=== PATIENT | male | born 1990 | race Caucasian/White ===

== ENCOUNTER 2018-07-11 09:35 | Emergency (ER) | payer OTHER ==
--- NOTE | 2018-07-11 09:42 | ERPHSYRPT ---
- History of Present Illness Time Seen by Provider: 07/11/18 09:41 Source: patient Exam Limitations: no limitations Physician History: 27 y/o white male presents with sudden onset of left flank pain at 0745 this am. no injury or fall. no known nephrolithiasis. never had anything like this before. associated n/v. no abd pain and no diarrhea. Timing/Duration: today Activites at Onset: none Quality: sharpness, stabbing Onset Location: left flank Pain Radiation: none Severity of Pain-Max: moderate Severity of Pain-Current: moderate Modifying Factors: Improves With: nothing Associated Symptoms: nausea, vomiting, lower back pain, No abdominal pain, No urinary frequency Prior abdominal problems: none Allergies/Adverse Reactions: No Known Drug Allergies Allergy (Verified 07/11/18 10:04) - Past Medical History Pertinent Past Medical History: Yes Neurological History: No Pertinent History ENT History: No Pertinent History Cardiac History: No Pertinent History Respiratory History: No Pertinent History Endocrine Medical History: No Pertinent History Musculoskeletal History: No Pertinent History GI Medical History: No Pertinent History History: No Pertinent History Psycho-Social History: No Pertinent History Male Reproductive Disorders: No Pertinent History - Past Surgical History Neuro Surgical History: No Pertinent History Cardiac: No Pertinent History Respiratory: No Pertinent History Gastrointestinal: No Pertinent History Genitourinary: No Pertinent History Musculoskeletal: No Pertinent History Male Surgical History: No Pertinent History - Review of Systems Constitutional: No Symptoms Eyes: No Symptoms Ears, Nose, & Throat: No Symptoms Respiratory: No Symptoms Cardiac: No Symptoms Abdominal/Gastrointestinal: Nausea, Vomiting, No Abdominal Pain, No Diarrhea, No Constipation Genitourinary Symptoms: Flank Pain (left), No Dysuria, No Frequency, No Hematuria Musculoskeletal: Back Pain, No Neck Pain, No Fall Skin: No Symptoms Neurological: No Symptoms Psychological: No Symptoms Endocrine: No Symptoms Immunological/Allergic: No Symptoms All Other Systems: Reviewed and Negative - Nursing Vital Signs Nursing Vital Signs: Initial Vital Signs Temperature 98.5 F 07/11/18 11:22 Pulse Rate 92 H 07/11/18 11:22 Blood Pressure 130/79 07/11/18 11:22 O2 Sat by Pulse Oximetry 97 07/11/18 11:22 Pain Scale Pain Intensity 9 - Physical Exam General Appearance: moderate distress, alert, anxiety Eye Exam: PERRL/EOMI Ears, Nose, Throat Exam: normal ENT inspection, moist mucous membranes Neck Exam: normal inspection, non-tender, supple, full range of motion Respiratory Exam: normal breath sounds, lungs clear, airway intact, No chest tenderness, No respiratory distress, No accessory muscle use, No rhonchi, No wheezing, No stridor Cardiovascular Exam: regular rate/rhythm, normal heart sounds, normal peripheral pulses Gastrointestinal/Abdomen Exam: soft, normal bowel sounds, No tenderness, No guarding, No rebound Rectal Exam: not done Back Exam: normal inspection, normal range of motion, CVA tenderness (left), No vertebral tenderness, No muscle spasm Extremity Exam: normal inspection, normal range of motion, pelvis stable Neurologic Exam: alert, oriented x 3, cooperative, 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 Skin Exam: normal color, warm, dry Lymphatic Exam: No adenopathy SpO2 Interpretation: normal O2 Delivery: Room Air Ordered Tests: Active Orders 24 hr Category Date Time Status IV Insertion STAT Care 07/11/18 09:52 Active ABDOMEN AND PELVIS W/0 CONTRAS [CT] Stat Exams 07/11/18 09:53 Completed AMYLASE Stat Lab 07/11/18 10:00 Completed CBC W DIFF Stat Lab 07/11/18 10:00 Completed CMP Stat Lab 07/11/18 10:00 Completed LIPASE Stat Lab 07/11/18 10:00 Completed Lactic Acid Stat Lab 07/11/18 10:06 Results UA W/RFX UR CULTURE Stat Lab 07/11/18 09:52 Uncollected Medication Summary Discontinued Medications Generic Name Dose Route Start Last Admin Trade Name Rubenq PRN Reason Stop Dose Admin Hydromorphone HCl 1 mg 07/11/18 09:52 07/11/18 10:41 Hydromorphone 1 Mg/Ml Ampule IV 07/11/18 09:53 1 mg STAT ONE Administration Hydromorphone HCl Confirm 07/11/18 10:40 Hydromorphone 1 Mg/Ml Ampule Administered 07/11/18 10:41 Dose 1 mg .ROUTE .STK-MED ONE Sodium Chloride Confirm 07/11/18 09:50 Sodium Chloride 0.9% 1000 Ml Administered 07/11/18 09:51 Dose 1,000 mls @ ud .ROUTE .STK-MED ONE Sodium Chloride 1,000 mls @ 999 mls/hr 07/11/18 09:52 07/11/18 11:33 Sodium Chloride 0.9% 1000 Ml IV 07/11/18 10:52 Infused .Q1H1M STA Infusion Ketorolac Tromethamine 30 mg 07/11/18 10:26 07/11/18 10:41 Toradol 30 Mg Injection IV 07/11/18 10:27 30 mg STAT ONE Administration Ketorolac Tromethamine Confirm 07/11/18 10:40 Toradol 30 Mg Injection Administered 07/11/18 10:41 Dose 30 mg .ROUTE .STK-MED ONE Ondansetron HCl Confirm 07/11/18 09:50 Zofran 4 Mg/2 Ml Vial Administered 07/11/18 09:51 Dose 4 mg .ROUTE .STK-MED ONE Ondansetron HCl 4 mg 07/11/18 09:52 07/11/18 10:03 Zofran 4 Mg/2 Ml Vial IV 07/11/18 09:53 4 mg STAT ONE Administration Lab/Rad Data: Laboratory Result Diagrams 07/11/18 10:00 07/11/18 10:00 Laboratory Results 07/11/18 07/11/18 07/11/18 Range/Units 10:06 10:00 10:00 WBC 10.6 H (4.0-10.5) K/mm3 RBC 4.85 (4.1-5.6) M/mm3 Hgb 15.5 (12.5-18.0) gm/dl Hct 46.3 (42-50) % MCV 95.5 (78-100) fl MCH 32.0 (26-32) pg MCHC 33.5 (32-36) g/dl RDW 12.5 (11.5-14.0) % Plt Count 242 (150-450) K/mm3 MPV 10.0 H (6-9.5) fl Gran % 75.9 H (36.0-66.0) % Eos # (Auto) 0.13 (0-0.5) Absolute Lymphs (auto) 1.77 (1.0-4.6) Absolute Monos (auto) 0.62 (0.0-1.3) Lymphocytes % 16.8 L (24.0-44.0) % Monocytes % 5.9 (0.0-12.0) % Eosinophils % 1.2 (0.00-5.0) % Basophils % 0.2 (0.0-0.4) % Absolute Granulocytes 8.01 H (1.4-6.9) Basophils # 0.02 (0-0.4) Sodium 141 (137-145) mmol/L Potassium 4.5 (3.5-5.1) mmol/L Chloride 106 (98-107) mmol/L Carbon Dioxide 25 (22-30) mmol/L Anion Gap 14.6 (5-15) MEQ/L BUN 13 (9-20) mg/dL Creatinine 0.91 (0.66-1.25) mg/dL Estimated GFR > 60.0 ML/MIN Glucose 120 H (74-106) mg/dL Lactic Acid 3.0 H (0.4-2.0) Calcium 9.1 (8.4-10.2) mg/dL Total Bilirubin 0.50 (0.2-1.3) mg/dL AST 25 (17-59) U/L ALT 30 (0-50) U/L Alkaline Phosphatase 67 (38-126) U/L Serum Total Protein 7.9 (6.3-8.2) g/dL Albumin 4.7 (3.5-5.0) g/dL Amylase 58 (30-110) U/L Lipase 92 (23-300) U/L - Progress Progress: improved, pain not gone completely, re-examined Progress Note: 07/11/18 11:42 ct scan ab/pelvis-left 3 to 4 mm ureterolithiasis. mild left hydronephrosis. left inguinal hernia. small hiatal hernia. Counseled pt/family regarding: lab results, diagnosis, need for follow-up, rad results - Departure Time of Disposition: 11:43 Departure Disposition: Home Clinical Impression: Ureterolithiasis Condition: Stable Critical Care Time: No Referrals: DOCTOR,NO FAMILY [Primary Care Provider] - Additional Instructions: drink plenty of fluids. add ibuprofen 600mg orally 3 times daily with food. follow up with primary doctor and urologist for further management Prescriptions: Hydrocodone/APAP 5/325 [[place] 5/325 mg] 1 each PO Q6H PRN PRN #10 tablet MDD 4 PRN Reason: Pain
[2018-07-11] MEDS ORDERED: Zofran 4 MG/2 ML VIAL ONE (09:50)
[2018-07-11] MEDS ORDERED: Sodium Chloride 0.9% 1000 ML 1,000 ML ONE (09:50)
[2018-07-11] MEDS ORDERED: Sodium Chloride 0.9% 1000 ML 1,000 ML IV STA (09:52)
[2018-07-11] MEDS ORDERED: Zofran 4 MG/2 ML VIAL IV ONE (09:52)
[2018-07-11] MEDS ORDERED: Hydromorphone 1 mg/ml Ampule IV ONE ×2 (09:52→11:57)
[2018-07-11 10:04] LABS: BASOPHIL % 0.2 % (0.0-0.4); Basophil (Absolute #) 0.02 (0-0.4); Eosinophil % 1.2 % (0.00-5.0); Eosinophil (Absolute #) 0.13 (0-0.5); Granulocyte Absolute (ANC) 8.01 (1.4-6.9); Granulocytes % 75.9 % (36.0-66.0); Hematocrit 46.3 % (42-50); Hemoglobin 15.5 gm/dl (12.5-18.0); Lymphocyte (Absolute #) 1.77 (1.0-4.6); Lymphocytes % 16.8 % (24.0-44.0); Mean Cell Volume 95.5 fl (78-100); Mean Corpuscular Hgb Concent. 33.5 g/dl (32-36); Monocyte (Absolute #) 0.62 (0.0-1.3); Monocytes % 5.9 % (0.0-12.0); Platelet Count 242 K/mm3 (150-450); Red Blood Count 4.85 M/mm3 (4.1-5.6); Red Cell Distribution Width 12.5 % (11.5-14.0); White Blood Count 10.6 K/mm3 (4.0-10.5)
[2018-07-11 10:18] LABS: ALBUMIN 4.7 g/dL (3.5-5.0); ALKALINE PHOSPHATASE 67 U/L (38-126); AMYLASE 58 U/L (30-110); ANION GAP 14.6 MEQ/L (5-15); BLOOD UREA NITROGEN 13 mg/dL (9-20); CHLORIDE 106 mmol/L (98-107); Calcium 9.1 mg/dL (8.4-10.2); Carbon Dioxide 25 mmol/L (22-30); Creatinine 1 0.91 mg/dL (0.66-1.25); Glucose 120 mg/dL (74-106); LIPASE 92 U/L (23-300); Potassium 4.5 mmol/L (3.5-5.1); SGOT/AST 25 U/L (17-59); SGPT/ALT 30 U/L (0-50); SODIUM 141 mmol/L (137-145); Total Protein 7.9 g/dL (6.3-8.2)
[2018-07-11] MEDS ORDERED: TORAdol 30 mg Injection IV ONE (10:26)
--- NOTE | 2018-07-11 10:34 | XRAY ---
Indication: Left flank pain. Multiple contiguous axial images obtained through the abdomen and pelvis without contrast using renal stone protocol. Comparison: None Lung bases demonstrates mild bibasilar dependent atelectasis. No infiltrate or effusion. Heart is not enlarged. Small hiatal hernia. There is a 3-4 mm distal left ureter calculus approximately 4-5 cm proximal to the UVJ. Proximal left ureter slightly prominent with mild hydronephrosis consistent with partial obstructive uropathy. No perinephric fluid. Noncontrasted stomach and bowel loops appear nonobstructed. Normal appendix. Minimal scattered colonic diverticulosis without diverticulitis. No free fluid/air. Remaining liver, gallbladder, pancreas, spleen, adrenal glands, right kidney, right ureter, bladder, and aorta appear unremarkable for noncontrast exam. Osseous structures intact. Large fatty left inguinal hernia herniating into the left scrotum. Impression: 1. 3-4 mm distal left ureter calculus producing partial obstruction as detailed. 2. Large fatty left inguinal hernia herniating into the scrotum. 3. Small hiatal hernia and minimal colonic diverticulosis. CT DI 23.18
[2018-07-11] MEDS ORDERED: Hydromorphone 1 mg/ml Ampule ONE ×2 (10:40→12:13)
[2018-07-11] MEDS ORDERED: TORAdol 30 mg Injection ONE (10:40)
[2018-07-11 12:37] VITALS: BP 133/90; PULSE 82; O2SAT 100
== END 2018-07-11 12:36 | disposition home or self-care (01) ==
LOC: ED 09:35
DX: N20.1 Calculus of ureter (principal); K40.90 Unilateral inguinal hernia, without obstruction or gangrene, not specified as recurrent; K44.9 Diaphragmatic hernia without obstruction or gangrene
CPT/HCPCS: 36415; 74176; 80053; 82150; 83605; 83690; 85025; 96360; 96374; 96375; 96376; 99284; J1170; J1885; J2405